=== PATIENT | female | born 1975 | race Caucasian/White ===

== ENCOUNTER 2025-02-28 22:30 | Observation (INO) | payer OTHER, SELFPAY ==
--- NOTE | ~2025-02-28 | XR_ITS ---
EXAMINATION: XR chest 2V DATE: 02/28/2025 22:54 INDICATION: Chest pain. Abdominal pain. TECHNIQUE: frontal and lateral views of the chest were obtained. COMPARISON: None FINDINGS: Lungs are clear with no full airspace opacities, pulmonary edema, pleural effusion or pneumothorax. H eart size is normal. Bilateral breast implants. 2.5 x 1.4 cm ovoid density projecting over the upper lumbar spine with differential including sclerotic bone lesion, large renal stone or gallstone. Moder ate thoracic spondylosis with couple age-indeterminate likely chronic lower thoracic compression frac tures. IMPRESSION: 1. No acute cardiopulmonary disease. 2. Ovoid density projecting over the upper lumbar spine which could represent and indeterminate large sclerotic bone lesion, a gallstone or large renal stone. Reviewed, dictated and finalized at location A. IMPRESSION: 1. No acute cardiopulmonary disease. 2. Ovoid density projecting over the upper lumbar spine which could represent a nd indeterminate large sclerotic bone lesion, a gallstone or large renal stone.
--- NOTE | ~2025-02-28 | XR_ITS ---
EXAMINATION: XR retrograde pyelo w/stent LT DATE: 03/01/2025 14:13 INDICATION: Left internal ureteral stent placement TECHNIQUE: Fluoroscopic images from a left internal ureteral stent placement are submitted for review . 54 seconds of fluoroscopy time. 5 fluoroscopic images. FINDINGS: There is a left double-J internal ureteral stent projecting in expected position, with proximal [place] loop at the level of the renal pelvis and distal loop in the pelvis within the bladder lumen. IMPRESSION: 1. Left internal ureteral stent placement. Please refer to real-time procedural findings for detail s. Reviewed, dictated and finalized at location B. IMPRESSION: 1. Left internal ureteral stent placement. Please refer to real-time procedur al findings for details.
--- NOTE | ~2025-02-28 | CT_ITS ---
Clinical Indication: Epigastric pain CT Scan of the Chest, Abdomen, and Pelvis with Contrast: Technique: Contiguous sections were acquired throughout the chest, abdomen, and pelvis after intraven ous administration of 100 cc of Omnipaque 350. Dose reduction technique was used on this scan by brian lombardo automated exposure control and iterative reconstruction technique. The dose-length product (DL P) was 999.41 mGy-cm. Findings: There is no evidence of any significant mediastinal, hilar or axillary lymphadenopathy. The mediastin al soft tissues appear normal. No large central pulmonary embolus. No aortic aneurysm or dissection. There is no evidence of pleural or pericardial effusion. The lungs are clear. No pulmonary nodules or infiltrates are noted. There is probable diffuse hepatic steatosis. There is a 1.8 cm round stone at the left renal pelvis w ith mild to moderate left hydronephrosis. There is mild hyperenhancement of the urothelium of the lef t renal collecting system, but no parenchymal changes of the left kidney are seen. The spleen, pancre as, gallbladder, adrenals and right kidney are within normal limits. No evidence of aortic aneurysm. No lymphadenopathy. No bowel obstruction or bowel wall thickening. There is no evidence to suggest acute appendicitis. Urinary bladder is unremarkable. No pelvic mass seen. No ascites. Impression: 1.8 cm round stones left renal pelvis with mild to moderate left hydronephrosis. Mild hyperenhancement of the urothelium in the left renal collecting system could reflect ascending u rinary tract infection. Correlate with urinalysis. No evidence of ron pyelonephritis. Reviewed, dictated and finalized at location . Impression: 1.8 cm round stones left renal pelvis with mild to moderate left hydronephrosis . Mild hyperenhancement of the urothelium in the left renal collecting system cou ld reflect ascending urinary tract infection. Correlate with urinalysis. No leilani dence of ron pyelonephritis.
--- NOTE | 2025-02-28 22:32 | ECG_ITS ---
Test Date: 2025-02-28 22:39:27 Measurements Intervals Amo Rate: 71 P: 53 [place]: 142 QRS: 13 QRSD: 90 T: 32 QT: 428 QTc: 466 Interpretive Statements SINUS RHYTHM NONSPECIFIC ST-T WAVE CHANGES No previous ECG available for comparison Electronically Signed On 03-01-2025 12:42:09 CDT by Polo Barlow M.D.
[2025-02-28 22:35] VITALS: BP 157/90; PULSE 78; RESP 26; TEMP 36.6
[2025-02-28] MEDS: ASPIRIN 81 MG CHEWABLE TABLET 324 MG PO (22:40)
[2025-02-28 22:50] LABS: Hematocrit 40.3 % (37.0-47.0); Hemoglobin 13.4 g/dL (12.0-15.0); Immature Granulocyte Percent A 0.3 % (0-0.5); Lymphocytes Absolute Auto 4.32 K/mm3 (0.9-3.2); Mean Corpuscular HGB Conc 33.3 g/dl (32-36); Mean Corpuscular Hemoglobin 29.3 pg (26-34); Mean Corpuscular Volume 88.2 fl (80-100); Nucleated Red Blood Cells Absolute Auto 0.000 K/mm3 (0.0-0.012); Nucleated Red Blood Cells Perc 0.0 % (0.0-0.2); Platelet Count Result 346 k/mm3 (150-375); Red Blood Count 4.57 M/mm3 (4.2-5.4); White Blood Count 12.0 K/mm3 (4.5-10.0)
[2025-02-28 23:02] LABS: INR 0.9; Prothrombin Time 12.5 Seconds (11.1-14.7)
[2025-02-28 23:03] LABS: Partial Thromboplastin Time 25.4 Seconds (22.3-36.8)
[2025-02-28 23:16] VITALS: BP 172/88; PULSE 85; RESP 22; O2SAT 100
--- NOTE | 2025-02-28 23:18 | PC.NURSE ---
Assumed care. report given by Vanita BOYLE.
[2025-02-28 23:20] LABS: Alanine Aminotransferase 19 U/L (6-35); Albumin Level 4.5 g/dL (3.5-5.1); Alkaline Phosphatase 46 U/L (38-126); Anion Gap 13 mmol/L (4-12); Aspartate Amino Transferase 28 U/L (14-36); Bilirubin,Total 0.5 mg/dL (0.2-1.3); Blood Urea Nitrogen 13 mg/dL (7-17); Calcium 10.3 mg/dL (8.4-10.2); Carbon Dioxide 24 mmol/L (22-30); Chloride 104 mmol/L (98-107); Estimated CRCL calculation 57 ml/min; Estimated Glomerular Filt Rate 59; Glucose 109 mg/dL (65-110); Lipase 127 U/L (23-300); Potassium 3.1 mmol/L (3.4-5.0); Sodium 141 mmol/L (137-145); Total Protein 8.4 g/dL (6.3-8.2)
[2025-02-28 23:28] LABS: Troponin I < 0.012 ng/mL (0.000-0.034)
--- NOTE | 2025-02-28 23:33 | ED.CHESTPAIN ---
HPI - Chest Pain General Chief Complaint: Chest Pain <MEGHNA Martinez Last Filed: 03/01/25 02:40> Stated Complaint: chest pain <Chiquita Streeter PA-C - Last Filed: 03/01/25 02:40> Time Seen by Provider: 02/28/25 22:45 <Chiquita Streeter PA-C - Last Filed: 03/01/25 02:40> History of Present Illness HPI narrative: 49-year-old female with reported history of hypertension, GERD, PUD, kidney stones presents to the emergency department for epigastric abdominal pain that started at 6:00 p.m.. Patient states she was sitting at dinner when she began having pain in her epigastrium and lower chest that radiates to her back. She reports a history of indigestion and states this feels similar, however usually does not last this long. She states 30 minutes after her pain started she ate potato soup which made the pain worse. She thought it was acid reflux she took omeprazole but did not have improvement. Patient reports associated nausea and vomiting as well as diarrhea and subjective fever and chills. Patient has a history of acid reflux and was also told that she had an ulcer on endoscopy several years ago. Denies urinary symptoms, melena or hematochezia, hematemesis or coffee-ground emesis. Denies numbness or tingling to extremities. Patient is endorsing a cough. <Chiquita Streeter PA-C - Last Filed: 03/01/25 02:40> Related Data Allergies/Adverse Reactions: Allergies Allergy/AdvReac Type Severity Reaction Status Date / Time acetaminophen (From Percocet) AdvReac Intermediate Hallucinati Verified 02/28/25 22:31 ng oxycodone AdvReac Intermediate Hallucinati Verified 02/28/25 22:31 ng <Chiquita Streeter PA-C - Last Filed: 03/01/25 02:40> Review of Systems Review of Systems: All systems reviewed & are unremarkable except as noted in HPI and below <MEGHNA Martinez Last Filed: 03/01/25 02:40> Exam Narrative: GENERAL: Uncomfortable appearing HEAD: Normocephalic, atraumatic. EYES: PERRLA and EOMI. ENT: Nares clear, no rhinorrhea or epistaxis. Mucous membranes moist. NECK: Supple. CHEST: Clear to auscultation. No respiratory distress. HEART: Regular rate and rhythm. No murmur heard. Normal peripheral pulses. ABDOMEN: Normoactive bowel sounds. Abdomen soft with tenderness in the epigastrium and right upper quadrant. No rebound or rigidity. No CVA tenderness EXTREMITIES: Normal range of motion. No edema. SKIN: Warm, dry, no rash. NEURO: No focal deficits. Alert and oriented x3 <Chiquita Streeter PA-C - Last Filed: 03/01/25 02:40> Course CRAPS MANAGER/PA Physician Supervision This visit was performed by both a physician and an APC. I performed all aspects of the MDM as documented. <Devan Graham MD - Last Filed: 03/01/25 05:32> Vital Signs Vital signs: Vital Signs Temperature 36.6 C 02/28/25 22:35 Pulse Rate 78 02/28/25 22:35 Respiratory Rate 26 H 02/28/25 22:35 Blood Pressure 157/90 H 02/28/25 22:35 Oxygen Delivery Room Air 02/28/25 22:35 Temperature 36.6 C 02/28/25 22:35 Pulse Rate 67 03/01/25 04:18 Respiratory Rate 19 03/01/25 04:18 Blood Pressure 156/101 H 03/01/25 04:18 Pulse Oximetry 100 03/01/25 04:18 Oxygen Delivery Room Air 02/28/25 23:50 <Chiquita Streeter PA-C - Last Filed: 03/01/25 02:40> Vital Signs Temperature 36.6 C 02/28/25 22:35 Pulse Rate 78 02/28/25 22:35 Respiratory Rate 26 H 02/28/25 22:35 Blood Pressure 157/90 H 02/28/25 22:35 Oxygen Delivery Room Air 02/28/25 22:35 Temperature 36.6 C 02/28/25 22:35 Pulse Rate 67 03/01/25 04:18 Respiratory Rate 19 03/01/25 04:18 Blood Pressure 156/101 H 03/01/25 04:18 Pulse Oximetry 100 03/01/25 04:18 Oxygen Delivery Room Air 02/28/25 23:50 <Devan Graham MD - Last Filed: 03/01/25 05:32> MDM - Chest Pain MDM Narrative Medical decision making narrative: 49-year-old female with a reported history of hypertension, GERD, PUD, kidney stones presents to the emergency department for epigastric abdominal pain that radiates to her back that started at 6:00 p.m.. Patient is uncomfortable appearing on exam. Vital signs with tachypnea of 26 and blood pressure 157/90, otherwise unremarkable. Exam is notable for the above. Patient is very uncomfortable appearing, will obtain CTA chest, abdomen and pelvis. EKG shows normal sinus rhythm with rate of 71 ppm, normal ID interval, normal QRS duration, normal QTC, no ischemic changes. Troponin is undetectable. Lab work with leukocytosis of 12. Chemistries with mild hypokalemia of 3.1 which is been orally repleted. Magnesium normal. Calcium mildly elevated at 10.3 due to dehydration. Fluids provided. Urinalysis indicative of urinary tract infection with 3+ leukocyte esterase, 21-50 year or blood cells, greater than 100 white blood cells. negative. CT a of the chest and pelvis shows no stenosis, dissection, aneurysm or occlusion of the abdominal aorta. There is left-sided hydroureteronephrosis secondary to 2 cm calculus within the left renal pelvis which is likely the source of patient's symptoms. There is diverticulosis without evidence of diverticulitis and hepatomegaly. Patient was updated on results. She rigidly received IV fluids, GI cocktail and Pepcid without improvement. She then received Dilaudid with improvement. Given large renal stone in conjunction with UTI, will consult Urology. Discussed with urologist, Dr. Cruz, who agrees to admission and starting Rocephin. Advises keep the patient NPO for likely stent placement tomorrow. Discussed with hospitalist, Dr. Morgan, who agrees to admission. <Chiquita Streeter PA-C - Last Filed: 03/01/25 02:40> Lab Data Result diagrams: 02/28/25 22:43 02/28/25 22:43 <Chiquita Streeter PA-C - Last Filed: 03/01/25 02:40> Labs: Lab Results 02/28/25 03/01/25 Range/Units 22:43 00:47 WBC 12.0 H (4.5-10.0) K/mm3 RBC 4.57 (4.2-5.4) M/mm3 Hgb 13.4 (12.0-15.0) g/dL Hct 40.3 (37.0-47.0) % MCV 88.2 (80-100) fl MCH 29.3 (26-34) pg MCHC 33.3 (32-36) g/dl RDW 13.2 (11.5-14.5) % Plt Count 346 (150-375) k/mm3 MPV 10.1 (7.4-10.4) fl Immature Gran % (Auto) 0.3 (0-0.5) % Neut % (Auto) 54.6 (45.5-73.1) % Lymph % (Auto) 36.0 (18.3-44.2) % [place] % (Auto) 6.7 (2.6-8.5) % Eos % (Auto) 1.8 (0-4.4) % Baso % (Auto) 0.6 (0.2-1.2) % Lymph # (Auto) 4.32 H (0.9-3.2) K/mm3 [place] # (Auto) 0.8 H (0.1-0.6) K/mm3 Eos # (Auto) 0.2 (0-0.3) K/mm3 Baso # (Auto) 0.1 (0.0-0.1) K/mm3 Abs Immat Gran (auto) 0.04 H (0.00-0.031) K/mm3 Absolute Neuts (auto) 6.6 (1.3-6.7) K/mm3 Absolute Nucleated RBC 0.000 (0.0-0.012) K/mm3 Nucleated RBC % 0.0 (0.0-0.2) % PT 12.5 (11.1-14.7) Seconds INR 0.9 APTT 25.4 (22.3-36.8) Seconds Sodium 141 (137-145) mmol/L Potassium 3.1 L (3.4-5.0) mmol/L Chloride 104 (98-107) mmol/L Carbon Dioxide 24 (22-30) mmol/L Anion Gap 13 H (4-12) mmol/L BUN 13 (7-17) mg/dL Creatinine 1.00 (0.7-1.0) mg/dL Estim Creat Clear Calc 57 ml/min Estimated GFR 59 (59 - ) Glucose 109 (65-110) mg/dL Calcium 10.3 H (8.4-10.2) mg/dL Magnesium 2.0 (1.6-2.3) mg/dL Total Bilirubin 0.5 (0.2-1.3) mg/dL AST 28 (14-36) U/L ALT 19 (6-35) U/L Alkaline Phosphatase 46 (38-126) U/L Troponin I < 0.012 (0.000-0.034) ng/mL Total Protein 8.4 H (6.3-8.2) g/dL Albumin 4.5 (3.5-5.1) g/dL Lipase 127 (23-300) U/L Urine Color Yellow (Yellow) Urine Appearance Cloudy H (Clear) Urine pH 7.5 (5.0-9.0) Ur Specific [place] 1.040 H (1.001-1.035) Urine Protein 2+ H (Negative) mg/dL Urine Glucose (UA) Negative (Negative) mg/dL Urine Ketones 2+ H (Negative) mg/dL Ur Blood (Man) 2+ H (Negative) Urine Nitrate Negative (Negative) Urine Bilirubin Negative (Negative) Urine Urobilinogen 1.0 (<2.0) mg/dL Leukocyte Esterase Rfl 3+ H (Negative) FANNIE/UL Urine RBC 21-50 H (0-2) /hpf Urine WBC >100 H (0-3) /hpf Ur Squamous Epith Cells Occasional (Few) /hpf Urine Bacteria Rare /hpf Urine Casts 3-5 Urine Test Negative <Chiquita Streeter PA-C - Last Filed: 03/01/25 02:40> Lab Results 02/28/25 03/01/25 Range/Units 22:43 00:47 WBC 12.0 H (4.5-10.0) K/mm3 RBC 4.57 (4.2-5.4) M/mm3 Hgb 13.4 (12.0-15.0) g/dL Hct 40.3 (37.0-47.0) % MCV 88.2 (80-100) fl MCH 29.3 (26-34) pg MCHC 33.3 (32-36) g/dl RDW 13.2 (11.5-14.5) % Plt Count 346 (150-375) k/mm3 MPV 10.1 (7.4-10.4) fl Immature Gran % (Auto) 0.3 (0-0.5) % Neut % (Auto) 54.6 (45.5-73.1) % Lymph % (Auto) 36.0 (18.3-44.2) % [place] % (Auto) 6.7 (2.6-8.5) % Eos % (Auto) 1.8 (0-4.4) % Baso % (Auto) 0.6 (0.2-1.2) % Lymph # (Auto) 4.32 H (0.9-3.2) K/mm3 [place] # (Auto) 0.8 H (0.1-0.6) K/mm3 Eos # (Auto) 0.2 (0-0.3) K/mm3 Baso # (Auto) 0.1 (0.0-0.1) K/mm3 Abs Immat Gran (auto) 0.04 H (0.00-0.031) K/mm3 Absolute Neuts (auto) 6.6 (1.3-6.7) K/mm3 Absolute Nucleated RBC 0.000 (0.0-0.012) K/mm3 Nucleated RBC % 0.0 (0.0-0.2) % PT 12.5 (11.1-14.7) Seconds INR 0.9 APTT 25.4 (22.3-36.8) Seconds Sodium 141 (137-145) mmol/L Potassium 3.1 L (3.4-5.0) mmol/L Chloride 104 (98-107) mmol/L Carbon Dioxide 24 (22-30) mmol/L Anion Gap 13 H (4-12) mmol/L BUN 13 (7-17) mg/dL Creatinine 1.00 (0.7-1.0) mg/dL Estim Creat Clear Calc 57 ml/min Estimated GFR 59 (59 - ) Glucose 109 (65-110) mg/dL Calcium 10.3 H (8.4-10.2) mg/dL Magnesium 2.0 (1.6-2.3) mg/dL Total Bilirubin 0.5 (0.2-1.3) mg/dL AST 28 (14-36) U/L ALT 19 (6-35) U/L Alkaline Phosphatase 46 (38-126) U/L Troponin I < 0.012 (0.000-0.034) ng/mL Total Protein 8.4 H (6.3-8.2) g/dL Albumin 4.5 (3.5-5.1) g/dL Lipase 127 (23-300) U/L Urine Color Yellow (Yellow) Urine Appearance Cloudy H (Clear) Urine pH 7.5 (5.0-9.0) Ur Specific [place] 1.040 H (1.001-1.035) Urine Protein 2+ H (Negative) mg/dL Urine Glucose (UA) Negative (Negative) mg/dL Urine Ketones 2+ H (Negative) mg/dL Ur Blood (Man) 2+ H (Negative) Urine Nitrate Negative (Negative) Urine Bilirubin Negative (Negative) Urine Urobilinogen 1.0 (<2.0) mg/dL Leukocyte Esterase Rfl 3+ H (Negative) FANNIE/UL Urine RBC 21-50 H (0-2) /hpf Urine WBC >100 H (0-3) /hpf Ur Squamous Epith Cells Occasional (Few) /hpf Urine Bacteria Rare /hpf Urine Casts 3-5 Urine Test Negative <Devan Graham MD - Last Filed: 03/01/25 05:32> Discharge Plan Discharge Clinical Impression: Calculus, renal UTI (urinary tract infection) Qualifiers: Urinary tract infection type: acute cystitis Hematuria presence: with hematuria Qualified Code(s): N30.01 - Acute cystitis with hematuria <Chiquita Streeter PA-C - Last Filed: 03/01/25 02:40> Patient Disposition: Still a Patient <Chiquita Streeter PA-C - Last Filed: 03/01/25 02:40> Condition: Stable <Chiquita Streeter PA-C - Last Filed: 03/01/25 02:40>
[2025-02-28 23:50] VITALS: O2SAT 100
[2025-03-01] VITALS (16 sets, daily range): BP systolic 104–188; BP diastolic 65–101; PULSE 60–82; RESP 12–24; TEMP 36.3–36.8; O2SAT 96–100
[2025-03-01] MEDS: BELLADONNA ALK/PHENOB ELIX 10 ML, MAG HYDROX/ALUMINUM HYD/SIMETH 30 ML, LIDOCAINE 2% VI... PO (00:30)
[2025-03-01] MEDS: ONDANSETRON INJ 4 MG/2 ML VIAL IV PUSH ×3 (00:31→10:00)
[2025-03-01] MEDS: FAMOTIDINE 20 MG/2 ML VIAL IV PUSH (00:31)
[2025-03-01] MEDS: SODIUM CHLORIDE 0.9% IV 1,000 ML 999 ML IV CONT (00:31)
--- OUTSIDE RECORDS SUMMARY | 2025-03-01 01:00 | XMS_ITS | Encounter Summary ---
Author Organization [facility] [address] [place] [address] Care Team Providers Care Civil Lawyer Name Role Phone Hilda Hsieh MD Primary Care Provider Hilda Hsieh MD Unavailable [phone] Tere Barba PLUMBING INSTRUCTOR-OBSTETRICIAN/GYNECOLOGIST Unavailable Encounter Details Date Type Department Care Team (Late st Contact Info) Description 09/22/2022 Telephone [facility] [id number], [address] [place] [address] Hilda Hsieh MD [address] [place] [address] Social History Tobacco Use Types Packs/Day Years Used Date Smoking Tobacco: Never Smokeless Tobacco: Never Alcohol Use Standard Drinks/Week Comments Yes 0 (1 standard drink = 0.6 oz pur e alcohol) PHQ-2 Answer Date Recorded PHQ2 TOTAL SCORE 0 06/20/2022 Comments No Sex and Gender Information Value Date Recorded Sex Assigned at Female 06/09/2022 8:26 AM CDT Legal Sex Female 12:34 PM CDT Gender Identity Female 06/09/2022 8:26 AM CDT Sexual Orientation Straight 06/09/2022 8: 26 AM CDT documented as of this encounter Plan of Treatment Upcoming Encounters Date Type Department Care Team (Late st Contact Info) Description 05/09/2025 8:00 AM CDT Office Visit [facility] - Family Medicine [address] [place] [phone] Tere Barba, PLUMBING INSTRUCTOR-OBSTETRICIAN/GYNECOLOGIST [address] [address] [place] [phone] documented as of this encounter Visit Diagnoses Not on filedocumented in this encounter Care Teams Civil Lawyer Relationship Specialty Start Date End Date Hilda Hsieh MD [address] [facility] [address] [place] [phone] PCP - General Family Medicine 06/07/20 Hilda Hsieh MD [address] [facility] [address] [place] [phone] PCP - Attributed-[employer] 02/14/22 Tere Barba, PLUMBING INSTRUCTOR-OBSTETRICIAN/GYNECOLOGIST [address] [facility] [facility] [facility] [address] [place] [phone] PCP - Attributed-[employer] 11/15/24 documented as of this encounter
--- OUTSIDE RECORDS SUMMARY | 2025-03-01 01:00 | XMS_ITS | Clinical Summary ---
Author Organization [facility] [employer] Address [address] [place] [address] Care Team Providers Care Motorcyles Final Inspector Name Role Phone Hilda Hsieh MD Primary Care Provider [phone] Tere Barba PRODUCT DESIGN MANAGER-CLASSIFIED AD TAKER Unavailable [phone] Source Comments [facility],non-owned Affiliates and Associated Physician Practices is amultiple site organization consisting of ambulatory clinics and hospital sitesin [place], [place], [place] and [place]. This disclosure is being madepursuant to the Care Everywhere program and may not contain all information available regarding this patient. Last updated 18.[facility] Allergies Active Allergy Reactions Criticality Noted Date Comments Oxycodone-Acetaminophen Psychiatric Medium 06/05/2009 Medications * Be aware that medications may not be up to date on this document. Alwaysverify current medications with the patient. cetirizine (ZYRTEC ALLERGY) 10 MG gel capsule Take 1 (one) capsule by mouth once daily as needed Active fluticasone propionate (Flonase) 50 MCG/ACT nasal spray [place] 2 (two) sprays into each nostril once daily 48 g 4 2 Active traZODone (Desyrel) 50 MG tablet Take 2 (two) tablets by mouth at bedtime 180 tablet 3 4 Active escitalopram (Lexapro) 10 MG tablet Take 1 (one) tablet by mouth once daily 90 tablet 3 4 Active Nortrel 0.5/35, 28, 0.5-35 MG-MCG tablet Take 1 (one) tablet by mouth once daily 30 tablet 5 5 Active lisinopril (Prinivil; Zestril) 20 MG tablet Take 1 (one) tablet by mouth once daily 90 tablet 3 5 Active phentermine (Adipex-P) 37.5 MG tablet Take 1 (one) tablet by mouth once daily 30 tablet 2 5 Active Additional Information Patient not taking.Reported on 12/20/2024 hydroCHLOROthia zide (Hydrodiuril) 25 MG tablet Take 0.5 (one-half) tablet by mouth once daily 45 tablet 4 5 Active Active Problems Problem Noted Date Diagnosed Date Gastroesophageal reflux disease without esophagi tis 06/13/2020 Primary insomnia 06/13/2020 Anxiety with depression 06/13/2020 Essential hypertension 06/13/2020 Seasonal allergies 06/13/2020 Encounters Date Type Department Care Team Description 12/20/2024 1:40 PM CDT Office Visit [address] [phone] Hilda Hsieh MD Essential hypertension (Primary Dx); Anxiety with depression; Gastroesophageal reflux disease without esophagitis; Primary insomnia; Seasonal allergies; Atypical chest pain 12/20/2024 Travel 12/15/[address] [phone] Hilda Hsieh MD Blood Pressure from Last 3 Months Immunizations Immunization Administration Dates Next Due TDAP (7yrs+) 08/11/2008 TDAP, HISTORIC VACCINE 04/12/2020 Td (Adult), 2 Lf Tetanus Toxoid, Adsorbed, Pf Family History Medical History Relation Name Comments Hypertension Father Relation Name Status Comments Brother Alive Father Alive Mother Alive Social History Tobacco Use Types Packs/Day Years Used Date Smoking Tobacco: Never Passive Smoke Exposure: Never Smokeless Tobacco: Never Tobacco Cessation:Counseling Given: Not Answered Alcohol Use Standard Drinks/Week Comments Yes 2 (1 standard drink = 0.6 oz pur e alcohol) PHQ-2 Answer Date Recorded Patient Health Questionnaire-2 Score 0 12/20/2024 Comments No Sex and Gender Information Value Date Recorded Sex Assigned at Female 06/09/2022 8:26 AM CDT Legal Sex Female 12:34 PM CDT Gender Identity Female 06/09/2022 8:26 AM CDT Sexual Orientation Straight 06/09/2022 8: 26 AM CDT Last Filed Vital Signs Vital Sign Reading Time Taken Comments Blood Pressure 110/70 12/20/2024 1:53 PM CDT Pulse 99 12/20/2024 1:53 PM CDT Temperature 36.7 C (98.1 F) 04/13/2023 10:49 AM CDT Respiratory Rate 8 01/01/2023 12:56 PM CDT Oxygen Saturation 98% 12/20/2024 1:53 PM CDT Inhaled Oxygen Concentration - - Weight 70.3 kg (155 lb) 12/20/2024 1:53 PM CDT Height 157.5 cm (5' 2) 12/20/2024 1:53 PM CDT Body Mass Index 28.35 12/20/2024 1:53 PM CDT Plan of Treatment Upcoming Encounters Date Type Department Care Team (Late st Contact Info) Description 05/09/2025 8:00 AM CDT Office Visit [facility] - Family Medicine [address] [place] [phone] Tere Barba, PRODUCT DESIGN MANAGER-CLASSIFIED AD TAKER [address] [facility] [address] [place] [phone] Health Maintenance Due Date Last Done Comments COLOGUARD (AGES 45-75) - COLON CA SCREENING 1975 CT COLONOGRAPHY - COLON CA SCREENING 1975 FIT - COLON CA SCREENING 1975 FLEX SIG - COLON CA SCREENING 1975 MAMMOGRAM 06/24/2024 06/24/2022, 1103/2022, 11/06/2020 PAP SMEAR 03/22/2025 07/01/2021 (Done Outside Per Patient) Postponed from 07/01/2024 (Patient Directed) COVID-19 VACCINE ( season) 2025 Postponed from 04/17/2024 (Patient Directed) SCREENING FOR DIABETES 04/27/2027 , 04/28/2023, 04/25/2022, Additional history exists INFLUENZA VACCINE (#1) 2027 Postp oned from 04/17/2025 (Patient Directed) ZOSTER VACCINE (1 of 2) 2027 COLONOSCOPY - COLON CA SCREENING 01/02/2028 01/01/2023, 01/01/2023, 01/01/2023 Colorectal Cancer Screening 01/02/2028 LIPID TESTING 04/27/2029 04/27/2024, 04/17, 04/25/2022 DTAP/TDAP/TD VACCINES (3 - Td or Tdap) 04/12/2030 04/12/2020, 08/11/2008, 08/12/2005 COLON MONITORING 01/01/2033 01/01/2023, , 01/01/2023, Additional history exists HEPATITIS C SCREENING Completed 04/25/2022 DEPRESSION SCREENING Completed 08/24/2024, 12/08/2023, 07/14/2023, Additional history exists HEPATITIS B VACCINE Discontinued HIB VACCINE Aged Out No longer eligi ble based on patient's age to complete this topic HIV SCREENING Discontinued HPV VACCINE Aged Out No longer eligi ble based on patient's age to complete this topic MENINGOCOCCAL (Group B) VACCINE SHARED DECISION-MAKING Aged Out No longer eligible based on patient's age to complete this topic MENINGOCOCCAL GROUPS A/C/Y/W VACCINE Aged Out No longer eligible based on patient's age to complete this topic PNEUMOCOCCAL VACCINE Aged Out No long er eligible based on patient's age to complete this topic Procedures Procedure Name Priority Date/Time Associated Diagnosis Comments COMPREHENSIVE METABOLIC PANEL Routine 04/27/2024 8:45 AM CDT Preventative health care LIPID PROFILE Routine 04/27/2024 8:45 AM CDT Preventative health care ENDOSCOPY, COLON, SCREENING Routine 01/01/2023 12:08 PM CDT HEPATITIS C ANTIBODY Routine 04/25/2022 8:49 AM CDT Encounter for hepatitis C screening test for low risk patient MAMMOGRAPHY ORDER Routine 11/06/2020 from Last 3 Months or Most Recently Relevant to Health Maintenance Results * COMPREHENSIVE METABOLIC PANEL (04/27/2024 8:45 AM CDT) Glucose 87 70 - 99 mg/dL [facility] INSURANCE BILL BUN 12 6 - 24 mg/dL [facility] INSURANCE BILL Creatinine 0.90 0.57 - 1.00 mg/dL [facility] INSURANCE BILL eGFR by CKD-EPI 80 >59 mL/min/1.7 3 [facility] INSURANCE BILL BUN/Creatinine Ratio 13 9 - 23 [facility] INSURANCE BILL Sodium 137 134 - 144 mmol/L [facility] INSURANCE BILL Potassium 4.1 3.5 - 5.2 mmol/L [facility] INSURANCE BILL Chloride 100 96 - 106 mmol/L [facility] INSURANCE BILL CO2 22 20 - 29 mmol/L [facility] INSURANCE BILL Calcium 9.7 8.7 - 10.2 mg/dL [facility] INSURANCE BILL Protein Total 7.2 6.0 - 8.5 g/dL [facility] INSURANCE BILL Albumin 4.4 3.9 - 4.9 g/dL [facility] INSURANCE BILL Globulin Total 2.8 1.5 - 4.5 g/dL [facility] INSURANCE BILL Bilirubin Total 0.2 0.0 - 1.2 mg/dL [facility] INSURANCE BILL Alkaline Phosphatase 48 44 - 121 IU/L [facility] INSURANCE BILL AST 9 0 - 40 IU/L [facility] INSURANCE BILL ALT 12 0 - 32 IU/L [facility] INSURANCE BILL Blood BLOOD SPECIMEN / Unknown 04/27/2024 8:45 AM CDT 04/27/2024 Narrative [facility] INSURANCE BILL - 04/28/2024 7:11 AM CDT Performed at: 01 - [address] [id number] Art Dealer: Janes Tapia PhD, Phone: [phone] us Hilda Hsieh MD LAB - CHEMISTRY ORDERABLES Fin al Result [facility] INSURANCE BILL [address] [place] [address] * (ABNORMAL) LIPID PROFILE (04/27/2024 8:45 AM CDT) Cholesterol 266(H) 100 - 199 mg/dL [facility] INSURANCE BILL Triglycerides 185(H) 0 - 149 mg/dL [facility] INSURANCE BILL HDL Cholesterol 69 >39 mg/dL [facility] INSURANCE BILL VLDL Calculated 33 5 - 40 mg/dL [facility] INSURANCE BILL LDL Calculated 164(H) 0 - 99 mg/dL [facility] INSURANCE BILL Blood BLOOD SPECIMEN / Unknown 04/27/2024 8:45 AM CDT 04/27/2024 Narrative [facility] INSURANCE BILL - 04/28/2024 7:11 AM CDT Performed at: - [address] [id number] Art Dealer: Janes Tapia PhD, Phone: [phone] us Hilda Hsieh MD LAB - CHEMISTRY ORDERABLES Fin al Result Performing Organization Address City/State/[facility] Co de Phone Number [facility] INSURANCE BILL [address] [place] [address] * ENDOSCOPY, COLON, SCREENING (01/01/2023 12:08 PM CDT) Report Endoscopy POC _ Patient Name: Sahra Mckeon Procedure Date: 01/01/2023 12:08 PM Date of : 1975 Admit Type: Outpatient Age: 47 Room: ROOM 1 Gender: Female Attending MD: Ankit Stanford MD, [id number] _ Procedure: Colonoscopy Indications: Screening for colorectal malignant neoplasm, Last colonoscopy: date unknown (unable to locate last colonoscopy report) Providers: Ankit Stanford MD, Rosamaria Reid, OMNTANA, Tabitha Ravi, [place], Jennifer Stanton CRNA (Anesthesia Staff) Medicines: Propofol per Anesthesia Complications: No immediate complications. _ Estimated Blood Loss: Estimated blood loss: none. Procedure: Pre-Anesthesia Assessment: - Prior to the procedure, a History and Physical was performed, and patient medications and allergies were reviewed. The patient's tolerance of previous anesthesia was also reviewed. The risks and benefits of the procedure and the sedation options and risks were discussed with the patient. All questions were answered, and informed consent was obtained. Prior Anticoagulants: The patient has taken no anticoagulant or antiplatelet agents. ASA Grade Assessment: II - A patient with mild systemic disease. After reviewing the risks and benefits, the patient was deemed in satisfactory condition to undergo the procedure. After I obtained informed consent, the scope was passed under direct vision. Throughout the procedure, the patient's blood pressure, pulse, and oxygen saturations were monitored continuously. The [id number] SN [id number] was introduced through the anus and advanced to the cecum, identified by appendiceal orifice and ileocecal valve. The appendiceal orifice and the rectum were photographed. The quality of the bowel preparation was adequate. Findings: A 3 mm polyp was found in the proximal sigmoid colon. The polyp was sessile. The polyp was removed with a cold biopsy forceps. Resection and retrieval were complete. Diverticula were found in the sigmoid colon and descending colon. Hemorrhoids were found. The hemorrhoids were small. The exam was otherwise without abnormality. _ Impression: - One 3 mm polyp in the proximal sigmoid colon, removed with a cold biopsy forceps. Resected and retrieved. - Diverticulosis in the sigmoid colon and in the descending colon. - Hemorrhoids. - The examination was otherwise normal. Recommendation: - High fiber diet. - Continue present medications. - If the pathology report reveals adenomatous tissue, then repeat the colonoscopy for surveillance in 5 years. - No aspirin, ibuprofen, naproxen, or other non-steroidal anti-inflammatory drugs for 3 days after polyp removal. - Patient has a contact number available for emergencies. The signs and symptoms of potential delayed complications were discussed with the patient. Return to normal activities tomorrow. Written discharge instructions were provided to the patient. Procedure Code(s): --- Professional --- 70801, Colonoscopy, flexible; with biopsy, single or multiple --- Technical --- 49387, Colonoscopy, flexible; with biopsy, single or multiple Diagnosis Code(s): --- Professional --- Z12.11, Encounter for screening for malignant neoplasm of colon D12.5, Benign neoplasm of sigmoid colon K64.9, Unspecified hemorrhoids K57.30, Diverticulosis of large intestine without perforation or abscess without bleeding --- Technical --- Z12.11, Encounter for screening for malignant neoplasm of colon D12.5, Benign neoplasm of sigmoid colon K64.9, Unspecified hemorrhoids K57.30, Diverticulosis of large intestine without perforation or abscess without bleeding CPT copyright 2020 [employer]. All rights reserved. The codes documented in this report are preliminary and upon body builder review may be revised to meet current compliance requirements. ___ Ankit Stanford MD 01/01/2023 12:29:04 PM This report has been signed electronically. Number of Addenda: 0 Note Initiated On: 01/01/2023 12:08 PM [facility] ENDOSCOPY 01/01/2023 12:0 8 PM CDT us Ankit Stanford MD GI PROCEDURE ORDERABLES Edit ed Result - Final [facility] ENDOSCOPY * HEPATITIS C ANTIBODY (04/25/2022 8:49 AM CDT) Hepatitis C Antibody Non Reactive Non Reactive [facility] ACCOUNT BILL Comment: Non Reactive - Antibodies to Hepatitis C virus (HCV) were no t detected, result does not exclude early acute HCV infection. FASTING Blood BLOOD SPECIMEN / Unknown 04/25/2022 8:49 AM CDT 04/25/2022 Narrative Resulting Agency Comment Lab Testing performed at: [facility] [address] [facility] [id number] us Hilda Hsieh MD LAB - CHEMISTRY ORDERABLES Fin al Result [facility] ACCOUNT BILL [address] [place] [address] * MAMMOGRAPHY ORDER (11/06/2020) Anatomical Region Laterality Modality Mammography us Provider Unknown MAMMO ORDERABLES Final Result from Last 3 Months or Most Recently Relevant to Health Maintenance Insurance [employer] Care Teams Motorcyles Final Inspector Relationship Specialty Start Date End Date Hilda Hsieh MD [address] [place] [address] PCP - General Family Medicine 10/22/20 Tere Barba, PRODUCT DESIGN MANAGER-CLASSIFIED AD TAKER [address] [facility] [address] [place] [phone] PCP - Attributed-[employer] 11/15/24
[2025-03-01 01:12] LABS: Add Urine Microscopic? YES; Appearance Urine Cloudy (Clear); Glucose Urine UA Negative (Negative); Leukocyte Esterase Ur 3+ LEU/UL (Negative); Nitrate Urine Negative (Negative); Specific Grav Ur 1.040 (1.001-1.035)
[2025-03-01 01:24] LABS: Magnesium 2.0 mg/dL (1.6-2.3)
--- NOTE | 2025-03-01 01:31 | ECG_ITS ---
Test Date: 2025-03-01 01:30:02 Measurements Intervals [place] Rate: 73 P: 43 ID: [id number] QRS: 15 QRSD: 78 T: 24 QT: 409 QTc: 453 Interpretive Statements SINUS RHYTHM LOW QRS VOLTAGE IN PRECORDIAL LEADS [QRS DEFLECTION < 1.0 mV IN CHEST LEADS] POSSIBLE ANTERIOR MYOCARDIAL INFARCTION , PROBABLY OLD [30 ms Q WAVE IN V3/V4, OR R < 0.2 mV IN V4] Compared to ECG 02/28/2025 22:39:27 Low QRS voltage now present Myocardial infarct finding now present ST (T wave) deviation no longer present Electronically Signed On 03-01-2025 12:46:00 CDT by Polo Barlow M.D.
[2025-03-01] MEDS: POTASSIUM CHLORIDE 20 MEQ PACKET (FOR LIQUID) 40 MEQ PO (01:40)
[2025-03-01] MEDS: HYDROmorphone HCL INJ (*CRX) 2 MG/ML VIAL 0.5 MG IV PUSH ×4 (01:48→19:33)
[2025-03-01 02:03] LABS: Pregnancy On Board Control Positive
--- NOTE | 2025-03-01 04:00 | PC.NURSE ---
Blood cultures sent.
[2025-03-01] MEDS: cefTRIAXone 1 GM in SODIUM CHLORIDE 0.9% IV 50 ML 100 ML IVPB (04:07)
[2025-03-01] MEDS: SODIUM CHLORIDE 0.9% IV 1,000 ML 125 ML IV CONT ×2 (04:17→17:20)
--- NOTE | 2025-03-01 08:53 | ADMGEN ---
This patient, Sahra Mckeon, was admitted to [facility] Surg Room 330-01. Patient/family oriented to hospital policies and general routines including ID bracelet, bed and alarms, visiting hours, pain management, procedures, bathroom and other care routines, personal items, smoking policy, room service/diet, and visiting hours. Information on how to activate the Rapid Response Team has been discussed. Patient/Family are encouraged to report perceived risks to care and to ask questions if they do not understand what they are told or what they should do.
--- NOTE | 2025-03-01 09:23 | P.CONUR_ITS ---
Assessment and Plan Assessment and plan (1) Calculus, renal: Code(s): N20.0 - Calculus of kidney Status: Acute (2) UTI (urinary tract infection): Qualifiers: Hematuria presence: with hematuria Urinary tract infection type: acute cystitis Qualified Code(s): N30.01 - Acute cystitis with hematuria Code(s): N39.0 - Urinary tract infection, site not specified Status: Acute Plan -CT AP reveals 2cm round stone left renal pelvis with mild to moderate left hydronephrosis. Mild hyperenhancement of the urothelium in the left renal collecting system could reflect ascending urinary tract infection. Correlate with urinalysis -wbc 12 and cr is 1.00 -UA concerning for infection. Urine culture pending. Culture driven antibiotic therapy per primary service. -Discussed cystoscopy with left ureteral stent placement including risks and plan for outpatient definitive stone management after resolution of infection. Patient agreeable to urologic surgical intervention today. -Keep NPO -add on for cystoscopy with left ureteral stent placement with Dr. Wilkins today. Urology Consult Note HPI Date Seen: 03/01/25 Requesting Physician: Beata Morgan MD Primary Care Provider: PHYSICIAN NOT ON STAFF Consult Narrative Narrative: Sahra Mckeon is a 49 year old female with reported history of hypertension, GERD, PUD, kidney stones presents to the emergency department for epigastric abdominal pain that started at 6:00 p.m.. Patient states she was sitting at dinner when she began having pain in her epigastrium and lower chest that radiates to her back. She reports a history of indigestion and states this feels similar, however usually does not last this long. She states 30 minutes after her pain started she ate potato soup which made the pain worse. She thought it was acid reflux she took omeprazole but did not have improvement. Patient reports associated nausea and vomiting as well as diarrhea and subjective fever and chills. Patient has a history of acid reflux and was also told that she had an ulcer on endoscopy several years ago. Denies urinary symptoms, melena or hematochezia, hematemesis or coffee-ground emesis. Denies numbness or tingling to extremities. Patient is endorsing a cough Review of Systems 2 Review of Systems: All systems reviewed & are unremarkable except as noted in HPI and below [facility] Social History Social History Smoking status: Never smoker Alcohol intake: current Drinks per week: 2 Substance use: never Substance use type: does not use Do You Feel Safe in your Home?: Yes Lack of Transportation: No Lack of Food: Never True Current Housing: I Have Housing Concerned About Future Housing: No Difficulty Paying Gas/Electric Bills: No Difficulty Paying for Meds: No Currently Unemployed: No Education: Bachelor's Degree Difficulty w/ Childcare or Family Care: No Spiritual care concerns: No Meds Home Medications and Allergies Home Medications ?Medication ?Instructions ?Recorded ?Confirmed ?Type escitalopram oxalate 10 mg tablet 10 mg PO DAILY@0800 03/01/25 03/01/25 History hydrochlorothiazide 25 mg tablet 12.5 mg PO QAM 03/01/25 03/01/25 History lisinopril 20 mg tablet 20 mg PO QAM 03/01/25 03/01/25 History norethindrone 0.5 mg-ethinyl 1 tablet PO QAM 03/01/25 03/01/25 History estradiol 35 mcg tablet (Nortrel) trazodone 50 mg tablet 50 mg PO HS 03/01/25 03/01/25 History Allergies Allergy/AdvReac Type Severity Reaction Status Date / Time acetaminophen (From Percocet) AdvReac Intermediate Hallucinati Verified 03/01/25 08:55 ng oxycodone AdvReac Intermediate Hallucinati Verified 03/01/25 08:55 ng Vital Signs Vital Signs - 24 hr 02/28/25 22:35 02/28/25 23:16 02/28/25 23:50 Temperature 97.8 F Pulse Rate 78 85 Respiratory Rate 26 H 22 H Blood Pressure 157/90 H 172/88 H Pulse Oximetry 100 100 Oxygen Delivery Room Air Room Air 03/01/25 00:00 03/01/25 00:31 03/01/25 02:45 Temperature Pulse Rate 71 82 80 Respiratory Rate 17 19 Blood Pressure 156/83 H Pulse Oximetry 100 100 Oxygen Delivery 03/01/25 04:18 03/01/25 05:01 03/01/25 07:13 Temperature Pulse Rate 67 78 70 Respiratory Rate 19 12 18 Blood Pressure 156/101 H 174/95 H 188/94 H Pulse Oximetry 100 96 98 Oxygen Delivery Results Labs 02/28/25 22:43 02/28/25 22:43 Labs: Short CBC 02/28/25 Range/Units 22:43 WBC 12.0 H (4.5-10.0) K/mm3 Hgb 13.4 (12.0-15.0) g/dL Hct 40.3 (37.0-47.0) % Plt Count 346 (150-375) k/mm3 BMP 02/28/25 22:43 Sodium 141 Potassium 3.1 L Chloride 104 Carbon Dioxide 24 BUN 13 Creatinine 1.00 Glucose 109 Calcium 10.3 H Cardiac Enzymes 02/28/25 Range/Units 22:43 Troponin I < 0.012 (0.000-0.034) ng/mL Liver Function 02/28/25 Range/Units 22:43 Total Bilirubin 0.5 (0.2-1.3) mg/dL AST 28 (14-36) U/L ALT 19 (6-35) U/L Alkaline Phosphatase 46 (38-126) U/L Albumin 4.5 (3.5-5.1) g/dL Urine 03/01/25 Range/Units 00:47 Urine Color Yellow (Yellow) Urine Appearance Cloudy H (Clear) Urine pH 7.5 (5.0-9.0) Ur Specific [place] 1.040 H (1.001-1.035) Urine Protein 2+ H (Negative) mg/dL Urine Glucose (UA) Negative (Negative) mg/dL
--- NOTE | 2025-03-01 12:50 | WPDHPUPDATE1 ---
History and Physical Update Update Date/Time: 03/01/25 12:50 History and Physical has been reviewed, including an updated exam of the patient. There are NO changes in the patient's condition. Risks, benefits, and alternatives have been discussed and questions answered. Patient agrees to proceed with procedure.
--- NOTE | 2025-03-01 13:19 | P.PNAN_ITS ---
Anes - Initial Pre Proc Eval Procedure: Operation Date: 03/01/25 13:30 Proposed Procedures p Cystoscopy, Left Stent Placement - Miquel Wilkins MD Date/Time: 03/01/25 13:19 Surgeon: Beata Morgan MD Pre Op Diagnosis: Renal calculus Patient Data Age: 49 Gender: F Height: 1.57 m Weight: 71 kg Last Vital Signs Temp 98.2 F 03/01/25 12:38 Pulse 68 03/01/25 12:38 Resp 20 03/01/25 12:38 BP 164/85 H 03/01/25 12:38 Pulse Ox 97 03/01/25 12:38 O2 Del Method Room Air 03/01/25 12:38 Allergies Allergy/AdvReac Type Severity Reaction Status Date / Time acetaminophen (From Percocet) AdvReac Intermediate Hallucinati Verified 03/01/25 08:55 ng oxycodone AdvReac Intermediate Hallucinati Verified 03/01/25 08:55 ng Home Medications ?Medication ?Instructions ?Recorded ?Confirmed ?Type escitalopram oxalate 10 mg tablet 10 mg PO DAILY@0800 03/01/25 03/01/25 History hydrochlorothiazide 25 mg tablet 12.5 mg PO QAM 03/01/25 03/01/25 History lisinopril 20 mg tablet 20 mg PO QAM 03/01/25 03/01/25 History norethindrone 0.5 mg-ethinyl 1 tablet PO QAM 03/01/25 03/01/25 History estradiol 35 mcg tablet (Nortrel) trazodone 50 mg tablet 50 mg PO 03/01/25 03/01/25 History Laboratory Tests 02/28/25 03/01/25 03/01/25 22:43 00:47 03:12 WBC 12.0 H K/mm3 (4.5-10.0) RBC 4.57 M/mm3 (4.2-5.4) Hgb 13.4 g/dL (12.0-15.0) Hct 40.3 % (37.0-47.0) MCV 88.2 fl (80-100) MCH 29.3 pg (26-34) MCHC 33.3 g/dl (32-36) RDW 13.2 % (11.5-14.5) Plt Count 346 k/mm3 (150-375) MPV 10.1 fl (7.4-10.4) Immature Gran % (Auto) 0.3 % (0-0.5) Neut % (Auto) 54.6 % (45.5-73.1) Lymph % (Auto) 36.0 % (18.3-44.2) [place] % (Auto) 6.7 % (2.6-8.5) Eos % (Auto) 1.8 % (0-4.4) Baso % (Auto) 0.6 % (0.2-1.2) Lymph # (Auto) 4.32 H K/mm3 (0.9-3.2) [place] # (Auto) 0.8 H K/mm3 (0.1-0.6) Eos # (Auto) 0.2 K/mm3 (0-0.3) Baso # (Auto) 0.1 K/mm3 (0.0-0.1) Abs Immat Gran (auto) 0.04 H K/mm3 (0.00-0.031) Absolute Neuts (auto) 6.6 K/mm3 (1.3-6.7) Absolute Nucleated RBC 0.000 K/mm3 (0.0-0.012) Nucleated RBC % 0.0 % (0.0-0.2) PT 12.5 Seconds (11.1-14.7) INR 0.9 APTT 25.4 Seconds (22.3-36.8) Sodium 141 mmol/L (137-145) Potassium 3.1 L mmol/L (3.4-5.0) Chloride 104 mmol/L (98-107) Carbon Dioxide 24 mmol/L (22-30) Anion Gap 13 H mmol/L (4-12) BUN 13 mg/dL (7-17) Creatinine 1.00 mg/dL (0.7-1.0) Estim Creat Clear Calc 57 ml/min Estimated GFR 59 (59 - ) Glucose 109 mg/dL (65-110) Lactic Acid 2.6 H mmol/L (0.7-2.0) Calcium 10.3 H mg/dL (8.4-10.2) Magnesium 2.0 mg/dL (1.6-2.3) Total Bilirubin 0.5 mg/dL (0.2-1.3) AST 28 U/L (14-36) ALT 19 U/L (6-35) Alkaline Phosphatase 46 U/L (38-126) Troponin I < 0.012 ng/mL (0.000-0.034) Total Protein 8.4 H g/dL (6.3-8.2) Albumin 4.5 g/dL (3.5-5.1) Lipase 127 U/L (23-300) Urine Color Yellow (Yellow) Urine Appearance Cloudy H (Clear) Urine pH 7.5 (5.0-9.0) Ur Specific [place] 1.040 H (1.001-1.035) Urine Protein 2+ H mg/dL (Negative) Urine Glucose (UA) Negative mg/dL (Negative) Urine Ketones 2+ H mg/dL (Negative) Ur Blood (Man) 2+ H (Negative) Urine Nitrate Negative (Negative) Urine Bilirubin Negative (Negative) Urine Urobilinogen 1.0 mg/dL (<2.0) Leukocyte Esterase Rfl 3+ H FANNIE/UL (Negative) Urine RBC 21-50 H /hpf (0-2) Urine WBC >100 H /hpf (0-3) Ur Squamous Epith Cells Occasional /hpf (Few) Urine Bacteria Rare /hpf Urine Casts 3-5 Urine Test Negative 03/01/25 06:27 WBC RBC Hgb Hct MCV MCH MCHC RDW Plt Count MPV Immature Gran % (Auto) Neut % (Auto) Lymph % (Auto) [place] % (Auto) Eos % (Auto) Baso % (Auto) Lymph # (Auto) [place] # (Auto) Eos # (Auto) Baso # (Auto) Abs Immat Gran (auto) Absolute Neuts (auto) Absolute Nucleated RBC Nucleated RBC % PT INR APTT Sodium Potassium Chloride Carbon Dioxide Anion Gap BUN Creatinine Estim Creat Clear Calc Estimated GFR Glucose Lactic Acid 1.8 mmol/L (0.7-2.0) Calcium Magnesium Total Bilirubin AST ALT Alkaline Phosphatase Troponin I Total Protein Albumin Lipase Urine Color Urine Appearance Urine pH Ur Specific [place] Urine Protein Urine Glucose (UA) Urine Ketones Ur Blood (Man) Urine Nitrate Urine Bilirubin Urine Urobilinogen Leukocyte Esterase Rfl Urine RBC Urine WBC Ur Squamous Epith Cells Urine Bacteria Urine Casts Urine Test Patient hx anesthesia problems: none Family hx anesthesia problems: none Results Review: All pre-operative results and documents have been reviewed as part of the pre- operative evaluation. PMFSH Social History Social History Smoking status: Never smoker Alcohol intake: current Drinks per week: 2 Substance use: never Substance use type: does not use Do You Feel Safe in your Home?: Yes Lack of Transportation: No Lack of Food: Never True Current Housing: I Have Housing Concerned About Future Housing: No Difficulty Paying Gas/Electric Bills: No Difficulty Paying for Meds: No Currently Unemployed: No Education: Bachelor's Degree Difficulty w/ Childcare or Family Care: No Spiritual care concerns: No Anes - Eval Final PreProcedure Day of Procedure 03/01/25 13:19 Patient weight: normal Heart: regular rate and rhythm Lungs: clear to auscultation Airway: Mallampati scale class II Neurological: alert and oriented Last oral intake: >/= 8 hours ASA classification: II Emergent: no Anesthetic plan: proceed Anesthesia type and monitoring: general LMA and standard monitoring Results Review: All pre-operative results and documents have been reviewed as part of the pre- operative evaluation. Informed Consent: The patient's anesthetic plan and its attendant risks and benefits were discussed with the patient/family/POA. Questions were solicited and answers provided to the satisfaction of the patient/family/POA.
[2025-03-01] MEDS: LIDOCAINE 2% GEL UROJET 10 ML PKG MUCOUS MEM (14:04)
--- NOTE | 2025-03-01 14:09 | W.PM.PROC2 ---
Procedure Note - Detailed Date of Procedure 03/01/25 Pre-op Diagnosis Left Renal calculus Post-op Diagnosis Same Procedure Performed Cystoscopy, left retrograde pyelogram, left ureteral stent insertion Surgeon Miquel Wilkins MD Anesthesia General Findings Large left renal stone, approximately 25mm Left hydronephrosis Description of Procedure Informed consents obtained. Patient taken the operating room. She was given preoperative IV antibiotics on the floor. She was induced anesthesia. She was prepped and draped normal sterile fashion. A 20 F cystoscope was inserted through the urethra into the bladder. Inspection of bladder there no mucosal abnormalities. We cannulated the left ureteral orifice and a delicate ureter and her stone present in the renal pelvis causing left hydronephrosis especially in the upper pole collecting system. Over the wire we advanced a 4.8 F stent into the upper pole. A curl in the upper pole and a curl bladder was performed. Bladder was emptied. Lidocaine instilled. Patient was awakened taken to PACU stable condition Plan outpatient stone management. Likely PCNL given large stone size Complications No immediate complications Condition Stable Disposition PACU
[2025-03-01] MEDS: LACTATED RINGERS 1,000 ML 30 ML IV CONT ×2 (14:15)
--- NOTE | 2025-03-01 16:49 | PM.IMHP ---
H&P: HPI History of Present Illness Date/Time: 03/01/25 16:49 Chief Complaint: Chest pain Narrative: ER-HPI narrative: 49-year-old female with reported history of hypertension, GERD, PUD, kidney stones presents to the emergency department for epigastric abdominal pain that started at 6:00 p.m.. Patient states she was sitting at dinner when she began having pain in her epigastrium and lower chest that radiates to her back. She reports a history of indigestion and states this feels similar, however usually does not last this long. She states 30 minutes after her pain started she ate potato soup which made the pain worse. She thought it was acid reflux she took omeprazole but did not have improvement. Patient reports associated nausea and vomiting as well as diarrhea and subjective fever and chills. Patient has a history of acid reflux and was also told that she had an ulcer on endoscopy several years ago. Denies urinary symptoms, melena or hematochezia, hematemesis or coffee-ground emesis. Denies numbness or tingling to extremities. Patient is endorsing a cough To further evaluate patient epigastric pain, had CT scan of the abdomen, showed 1.8 cm round stones left renal pelvis with mild to moderate left hydronephrosis. also patient urine is suspicious for UTI with 3+ leukocyte esterase and urine white count is over 100, patient in being treated ceftriaxone, patient is seen by an urologist and is scheduled for cystoscopy and placement of a stent later today, , patient he pain in much better compared to when she arrive, will monitor and follow the patient. Review of Systems Review of Systems: All systems reviewed & are unremarkable except as noted in HPI and below [facility] Social History Social History Smoking status: Never smoker Alcohol intake: current Drinks per week: 2 Substance use: never Substance use type: does not use Do You Feel Safe in your Home?: Yes Lack of Transportation: No Lack of Food: Never True Current Housing: I Have Housing Concerned About Future Housing: No Difficulty Paying Gas/Electric Bills: No Difficulty Paying for Meds: No Currently Unemployed: No Education: Bachelor's Degree Difficulty w/ Childcare or Family Care: No Spiritual care concerns: No Meds Home Medications and Allergies Home Medications ?Medication ?Instructions ?Recorded ?Confirmed ?Type escitalopram oxalate 10 mg tablet 10 mg PO DAILY@0800 03/01/25 03/01/25 History hydrochlorothiazide 25 mg tablet 12.5 mg PO COUNTS INCLUDE 234 BEDS AT [facility] 03/01/25 03/01/25 History lisinopril 20 mg tablet 20 mg PO QA 03/01/25 03/01/25 History norethindrone 0.5 mg-ethinyl 1 tablet PO QA 03/01/25 03/01/25 History estradiol 35 mcg tablet (Nortrel) trazodone 50 mg tablet 50 mg PO 03/01/25 03/01/25 History Allergies Allergy/AdvReac Type Severity Reaction Status Date / Time acetaminophen (From Percocet) AdvReac Intermediate Hallucinati Verified 03/01/25 08:55 ng oxycodone AdvReac Intermediate Hallucinati Verified 03/01/25 08:55 ng Vital Signs Vital Signs - 24 hr 02/28/25 22:35 02/28/25 23:16 02/28/25 23:50 Temperature 36.6 C Pulse Rate 78 85 Respiratory Rate 26 H 22 H Blood Pressure 157/90 H 172/88 H Pulse Oximetry 100 100 Oxygen Delivery Room Air Room Air Oxygen Flow Rate 03/01/25 00:00 03/01/25 00:31 03/01/25 02:45 Temperature Pulse Rate 71 82 80 Respiratory Rate 17 19 Blood Pressure 156/83 H Pulse Oximetry 100 100 Oxygen Delivery Oxygen Flow Rate 03/01/25 04:18 03/01/25 05:01 03/01/25 07:13 Temperature Pulse Rate 67 78 70 Respiratory Rate 19 12 18 Blood Pressure 156/101 H 174/95 H 188/94 H Pulse Oximetry 100 96 98 Oxygen Delivery Oxygen Flow Rate 03/01/25 12:38 03/01/25 14:15 03/01/25 14:30 Temperature 36.8 C 36.3 C L Pulse Rate 68 68 62 Respiratory Rate 20 12 12 Blood Pressure 164/85 H 104/65 115/72 Pulse Oximetry 97 100 100 Oxygen Delivery Room Air Simple Face Mask Simple Face Mask Oxygen Flow Rate 10 10 03/01/25 14:45 03/01/25 15:00 03/01/25 15:15 Temperature Pulse Rate 60 60 74 Respiratory Rate 12 15 16 Blood Pressure 142/76 H 142/76 H 155/81 H Pulse Oximetry 100 100 100 Oxygen Delivery Simple Face Mask Room Air Room Air Oxygen Flow Rate 10 03/01/25 15:48 Temperature 36.3 C L Pulse Rate 67 Respiratory Rate 16 Blood Pressure 154/77 H Pulse Oximetry 100 Oxygen Delivery Oxygen Flow Rate Exam Narrative: Patient is comfortable, NAD HEENT: eyes are clear and none icteric LUNGS:CTA HEART: RR S1S2 ABD: BS+, Soft and nontender Lower extremities: no edema SKIN: nonjaundiced Neuro: grossly intact. H&P: Results Labs Labs: Short CBC 02/28/25 Range/Units 22:43 WBC 12.0 H (4.5-10.0) K/mm3 Hgb 13.4 (12.0-15.0) g/dL Hct 40.3 (37.0-47.0) % Plt Count 346 (150-375) k/mm3 BMP 02/28/25 22:43 Sodium 141 Potassium 3.1 L Chloride 104 Carbon Dioxide 24 BUN 13 Creatinine 1.00 Glucose 109 Calcium 10.3 H Cardiac Enzymes 02/28/25 Range/Units 22:43 Troponin I < 0.012 (0.000-0.034) ng/mL Liver Function 02/28/25 Range/Units 22:43 Total Bilirubin 0.5 (0.2-1.3) mg/dL AST 28 (14-36) U/L ALT 19 (6-35) U/L Alkaline Phosphatase 46 (38-126) U/L Albumin 4.5 (3.5-5.1) g/dL Urine 03/01/25 Range/Units 00:47 Urine Color Yellow (Yellow) Urine Appearance Cloudy H (Clear) Urine pH 7.5 (5.0-9.0) Ur Specific [place] 1.040 H (1.001-1.035) Urine Protein 2+ H (Negative) mg/dL Urine Glucose (UA) Negative (Negative) mg/dL Assessment and Plan Assessment and plan (1) Calculus, renal: Code(s): N20.0 - Calculus of kidney Status: Acute (2) UTI (urinary tract infection): Qualifiers: Hematuria presence: with hematuria Urinary tract infection type: acute cystitis Qualified Code(s): N30.01 - Acute cystitis with hematuria Code(s): N39.0 - Urinary tract infection, site not specified Status: Acute Plan To further evaluate patient epigastric pain, had CT scan of the abdomen, showed 1.8 cm round stones left renal pelvis with mild to moderate left hydronephrosis. also patient urine is suspicious for UTI with 3+ leukocyte esterase and urine white count is over 100, patient in being treated ceftriaxone, patient is seen by an urologist and is scheduled for cystoscopy and placement of a stent later today, , patient he pain in much better compared to when she arrive, will monitor and follow the patient.
[2025-03-02] MEDS: HYDROmorphone HCL INJ (*CRX) 2 MG/ML VIAL 0.5 MG IV PUSH (02:05)
[2025-03-02] MEDS: cefTRIAXone 1 GM in SODIUM CHLORIDE 0.9% IV 50 ML 100 ML IVPB (05:45)
[2025-03-02 05:48] VITALS: BP 114/59; PULSE 83; RESP 24; TEMP 36.8; O2SAT 98
[2025-03-02 06:42] LABS: Hematocrit 35.2 % (37.0-47.0); Hemoglobin 11.5 g/dL (12.0-15.0); Immature Granulocyte Percent A 0.4 % (0-0.5); Lymphocytes Absolute Auto 3.34 K/mm3 (0.9-3.2); Mean Corpuscular HGB Conc 32.7 g/dl (32-36); Mean Corpuscular Hemoglobin 29.7 pg (26-34); Mean Corpuscular Volume 91.0 fl (80-100); Nucleated Red Blood Cells Absolute Auto 0.000 K/mm3 (0.0-0.012); Nucleated Red Blood Cells Perc 0.0 % (0.0-0.2); Platelet Count Result 308 k/mm3 (150-375); Red Blood Count 3.87 M/mm3 (4.2-5.4); White Blood Count 13.5 K/mm3 (4.5-10.0)
[2025-03-02 06:55] LABS: Anion Gap 8 mmol/L (4-12); Blood Urea Nitrogen 9 mg/dL (7-17); Calcium 8.6 mg/dL (8.4-10.2); Carbon Dioxide 26 mmol/L (22-30); Chloride 106 mmol/L (98-107); Estimated CRCL calculation 72 ml/min; Estimated Glomerular Filt Rate > 60; Glucose 105 mg/dL (65-110); Potassium 3.6 mmol/L (3.4-5.0); Sodium 140 mmol/L (137-145)
--- NOTE | 2025-03-02 09:13 | WPDANESPN ---
Anes - Prog Note Post-Op Date/Time: 03/02/25 09:13 Cardiovascular status: normal Respiratory status: normal Airway patency: baseline Mental status: baseline Post-Op hydration status: normal Vital Signs: Last Vital Signs Temp 36.8 C 03/02/25 05:48 Pulse 83 03/02/25 05:48 Resp 24 H 03/02/25 05:48 BP 114/59 L 03/02/25 05:48 Pulse Ox 98 03/02/25 05:48 O2 Del Method Room Air 03/01/25 21:11 O2 Flow Rate 10 03/01/25 14:45 Pain Score (VAS): 09/26 I/O: Intake & Output 03/01/25 03/02/25 03/02/25 23:59 07:59 15:59 Intake Total 240 100 Balance 240 100 Laboratory Tests 03/02/25 06:27 03/02/25 06:27 03/02/25 06:27 WBC 13.5 H RBC 3.87 L Hgb 11.5 L Hct 35.2 L MCV 91.0 MCH 29.7 MCHC 32.7 RDW 13.5 Plt Count 308 MPV 10.3 Immature Gran % (Auto) 0.4 Neut % (Auto) 68.0 Lymph % (Auto) 24.7 [place] % (Auto) 6.7 Eos % (Auto) 0.1 Baso % (Auto) 0.1 L Lymph # (Auto) 3.34 H [place] # (Auto) 0.9 H Eos # (Auto) 0.0 Baso # (Auto) 0.0 Abs Immat Gran (auto) 0.06 H Absolute Neuts (auto) 9.2 H Absolute Nucleated RBC 0.000 Nucleated RBC % 0.0 Sodium 140 Potassium 3.6 Chloride 106 Carbon Dioxide 26 Anion Gap 8 BUN 9 Creatinine 0.77 Estim Creat Clear Calc 72 Estimated GFR > 60 Glucose 105 Calcium 8.6 Post-procedural complaints: none Patient Feedback: Patient satisfied with anesthetic care.
[2025-03-02] MEDS: ESCITALOPRAM OXALATE 10 MG TABLET PO (09:19)
--- NOTE | 2025-03-02 09:30 | PC.NURSE ---
Pt questioned re: adverse reaction to acetaminophen. Pt states she has an allergy to codeine/tylenol 3, but does fine with tylenol alone--no adverse reaction.
[2025-03-02] MEDS: ACETAMINOPHEN 500 MG TABLET 1000 MG PO (10:24)
--- NOTE | 2025-03-02 11:17 | P.PNUR_ITS ---
Progress Note: A&P Assessment and Plan (1) UTI (urinary tract infection): Qualifiers: Hematuria presence: with hematuria Urinary tract infection type: acute cystitis Qualified Code(s): N30.01 - Acute cystitis with hematuria Code(s): N39.0 - Urinary tract infection, site not specified Status: Acute (2) Calculus, renal: Code(s): N20.0 - Calculus of kidney Status: Acute Plan POD 1 Cystoscopy, left retrograde pyelogram, left ureteral stent insertion for Large left renal stone, approximately 25mm and Left hydronephrosis -wbc up to 13.5 today -cr remains wnl -urine and blood cultures are pending. Culture driven antibiotic therapy per primary service. -Plan outpatient stone management after resolution of infection. Likely PCNL given large stone size on [place] side. Patient plans to defer until after next . Subjective Subjective Date/Time Seen: 03/02/25 11:17 Interval history: POD 1 Cystoscopy, left retrograde pyelogram, left ureteral stent insertion for Large left renal stone, approximately 25mm and Left hydronephrosis no acute events overnight. Patient feels much better and is tolerating stent well. Review of Systems Review of Systems: All systems reviewed & are unremarkable except as noted in HPI and below Exam Const: General: comfortable and no acute distress Eyes: General: appearance normal, both eyes and all related structures Resp: Effort & Inspection: normal respiratory effort Skin: General skin exam: normal color Neuro: Speech: normal speech Psych: Mental Status: mental status grossly normal Affect: normal affect Objective Data Vital Signs Vital Signs: Vital Signs - 24 hr 03/01/25 12:38 03/01/25 14:15 03/01/25 14:30 Temperature 98.2 F 97.3 F L Pulse Rate 68 68 62 Respiratory Rate 20 12 12 Blood Pressure 164/85 H 104/65 115/72 Pulse Oximetry 97 100 100 Oxygen Delivery Room Air Simple Face Mask Simple Face Mask Oxygen Flow Rate 10 03/01/25 14:45 03/01/25 15:00 03/01/25 15:15 Temperature Pulse Rate 60 60 74 Respiratory Rate 12 15 16 Blood Pressure 142/76 H 142/76 H 155/81 H Pulse Oximetry 100 100 100 Oxygen Delivery Simple Face Mask Room Air Room Air Oxygen Flow Rate 10 03/01/25 15:48 03/01/25 20:00 03/01/25 21:11 Temperature 97.3 F L Pulse Rate 67 Respiratory Rate 16 Blood Pressure 154/77 H Pulse Oximetry 100 98 99 Oxygen Delivery Room Air Room Air Oxygen Flow Rate 03/01/25 21:59 03/02/25 05:48 03/02/25 08:00 Temperature 98.3 F 98.3 F Pulse Rate 76 83 Respiratory Rate 24 H 24 H Blood Pressure 144/78 H 114/59 L Pulse Oximetry 98 98 Oxygen Delivery Room Air Oxygen Flow Rate Intake/Output Intake/Output: Intake & Output 02/27/25 02/28/25 03/01/25 03/02/25 23:59 23:59 23:59 23:59 Intake Total 2340 150 Balance 2340 150 Meds/Results Medications: Active Medications Generic Name Dose Route Start Last Admin Trade Name Freq PRN Reason Stop Dose Admin Acetaminophen 1,000 mg 03/02/25 09:26 03/02/25 10:24 Acetaminophen 500 Mg Tablet PO 1,000 mg Q8H PRN Administration Mild Pain (1-3) or Fever Escitalopram Oxalate 10 mg 03/02/25 08:00 03/02/25 09:19 Escitalopram Oxalate 10 Mg Tablet PO 10 mg DAILY@0800 ESTELLE Administration Fentanyl Citrate 25 mcg 03/01/25 13:18 Fentanyl Citrate Inj (*Crx) 100 Mcg/2 Ml Vial IV PUSH Q2M PRN Pain Hydrochlorothiazide 12.5 mg 03/02/25 09:00 03/02/25 09:19 Hydrochlorothiazide 12.5 Mg Capsule PO 12.5 mg QAM ESTELLE Administration Hydromorphone HCl 0.5 mg 03/01/25 02:38 03/02/25 02:05 Hydromorphone Hcl Inj (*Crx) 2 Mg/Ml Vial IV PUSH 0.5 mg Q4H PRN Administration Pain Rated 7-10 Ceftriaxone Sodium 1 gm/ 50 mls @ 100 mls/hr 03/02/25 05:00 03/02/25 06:15 Sodium Chloride IVPB Infused Q24H ESTELLE Infusion Sodium Chloride 1,000 mls @ 125 mls/hr 03/01/25 02:40 03/02/25 05:14 Normal Saline Iv IV CONT Not Given .Q8H ESTELLE Lisinopril 20 mg 03/02/25 09:00 03/02/25 09:19 Lisinopril 20 Mg Tablet PO 20 mg QAM ESTELLE Administration Miscellaneous Information 0 each 03/01/25 00:01 03/02/25 05:14 Nortrel 0.5/35 Is Non-Formulary. Use Pt Own Supply? XX 03/31/25 00:00 Not Given CLARIFY ESTELLE Non-Formulary Medication 1 tablet 03/02/25 09:00 Norethindrone-Ethin Estradiol [Nortrel 0.5/35 (28)] PO 04/01/25 08:59 QAM ESTELLE Ondansetron HCl 4 mg 03/01/25 02:38 03/01/25 10:00 Ondansetron Inj 4 Mg/2 Ml Vial IV PUSH 4 mg Q4H PRN Administration Nausea Ondansetron HCl 4 mg 03/01/25 13:18 Ondansetron Inj 4 Mg/2 Ml Vial IV PUSH ONCE PRN Nausea Trazodone HCl 50 mg 03/01/25 21:00 03/01/25 19:34 Trazodone Hcl 50 Mg Tablet PO 50 mg HS ESTELLE Administration Radiology Results: ITS Impressions Chest X-Ray 02/28/25 23:03 IMPRESSION: 1. No acute cardiopulmonary disease. 2. Ovoid density projecting over the upper lumbar spine which could represent and indeterminate large sclerotic bone lesion, a gallstone or large renal stone. Chest/Abdomen/Pelvis CTA 03/01/25 05:48 Impression: 1.8 cm round stones left renal pelvis with mild to moderate left hydronephrosis. Mild hyperenhancement of the urothelium in the left renal collecting system could reflect ascending urinary tract infection. Correlate with urinalysis. No evidence of ron pyelonephritis. Retrograde Pyelogram 03/01/25 15:27 IMPRESSION: 1. Left internal ureteral stent placement. Please refer to real-time procedural findings for details. Labs Labs: Laboratory Results - last 24 hr 03/02/25 06:27 WBC 13.5 H RBC 3.87 L Hgb 11.5 L Hct 35.2 L MCV 91.0 MCH 29.7 MCHC 32.7 RDW 13.5 Plt Count 308 MPV 10.3 Immature Gran % (Auto) 0.4 Neut % (Auto) 68.0 Lymph % (Auto) 24.7 [place] % (Auto) 6.7 Eos % (Auto) 0.1 Baso % (Auto) 0.1 L Lymph # (Auto) 3.34 H [place] # (Auto) 0.9 H Eos # (Auto) 0.0 Baso # (Auto) 0.0 Abs Immat Gran (auto) 0.06 H Absolute Neuts (auto) 9.2 H Absolute Nucleated RBC 0.000 Nucleated RBC % 0.0 Sodium 140 Potassium 3.6 Chloride 106 Carbon Dioxide 26 Anion Gap 8 BUN 9 Creatinine 0.77 Estim Creat Clear Calc 72 Estimated GFR > 60 Glucose 105 Calcium 8.6
--- NOTE | 2025-03-02 11:44 | P.DS_ITS ---
DS: Admitting Diagnosis Discharge Date 03/02/25 Admitting Diagnosis Chest pain DS: Discharge Diagnosis Discharge Diagnosis (1) Calculus, renal: Code(s): N20.0 - Calculus of kidney Status: Acute (2) UTI (urinary tract infection): Qualifiers: Hematuria presence: with hematuria Urinary tract infection type: acute cystitis Qualified Code(s): N30.01 - Acute cystitis with hematuria Code(s): N39.0 - Urinary tract infection, site not specified Status: Acute Plan To further evaluate patient epigastric pain, had CT scan of the abdomen, showed 1.8 cm round stones left renal pelvis with mild to moderate left hydronephrosis. also patient urine is suspicious for UTI with 3+ leukocyte esterase and urine white count is over 100, patient in being treated ceftriaxone, patient is seen by an urologist and is scheduled for cystoscopy and placement of a stent later today, , patient he pain in much better compared to when she arrive, will monitor and follow the patient. DS: Summary Hospital Course Hospital Course: To further evaluate patient epigastric pain, had CT scan of the abdomen, showed 1.8 cm round stones left renal pelvis with mild to moderate left hydronephrosis. also patient urine is suspicious for UTI with 3+ leukocyte esterase and urine white count is over 100, patient in being treated ceftriaxone, patient is seen by an urologist and is scheduled for cystoscopy and placement of a stent later today, POD 1 Cystoscopy, left retrograde pyelogram, left ureteral stent insertion for Large left renal stone, approximately 25mm and Left hydronephrosis today patient pain in much better compared to when she arrive, patient is clinically stable will discharge patient today. Time Spent with Patient Time attestation: Total time spent providing and/or coordinating discharge services: Exam Narrative: Patient is comfortable, NAD HEENT: eyes are clear and none icteric LUNGS:CTA HEART: RR S1S2 ABD: BS+, Soft and nontender Lower extremities: no edema SKIN: nonjaundiced Neuro: grossly intact. DS: Data Data Completed and Pending Labs on day of discharge: Labs from last 24 hours 03/02/25 06:27 WBC 13.5 H RBC 3.87 L Hgb 11.5 L Hct 35.2 L MCV 91.0 MCH 29.7 MCHC 32.7 RDW 13.5 Plt Count 308 MPV 10.3 Immature Gran % (Auto) 0.4 Neut % (Auto) 68.0 Lymph % (Auto) 24.7 Lander % (Auto) 6.7 Eos % (Auto) 0.1 Baso % (Auto) 0.1 L Lymph # (Auto) 3.34 H Lander # (Auto) 0.9 H Eos # (Auto) 0.0 Baso # (Auto) 0.0 Abs Immat Gran (auto) 0.06 H Absolute Neuts (auto) 9.2 H Absolute Nucleated RBC 0.000 Nucleated RBC % 0.0 Sodium 140 Potassium 3.6 Chloride 106 Carbon Dioxide 26 Anion Gap 8 BUN 9 Creatinine 0.77 Estim Creat Clear Calc 72 Estimated GFR > 60 Glucose 105 Calcium 8.6 Discharge Plan Discharge Attending physician on discharge: Beata Morgan Consulting providers: Jori, Hilda; Devan Graham; Augustine Wilkins i; Madeline Villalobos; Sara Davis; [place]; Polo Barlow; Isael Saavedra; Tung Chandler; Yunior Washington Discharging Clinician: Festus Alfonso Patient Disposition: Home Activity: other - see discharge instructions Diet: regular Discharge Instructions: patient to follow discharge instruction from her urologist and follow up as scheduled, patient to follow up with her primary care provider as soon as possible, patient instructed if any symptoms redevelop to go to nearest ER. Patient may return to work tomorrow. Patient Instructions: Antibiotic Form Patient Language: Wolof Stand Alone Forms: General Discharge Information, Work/School Release IP Follow-up/Referrals: Miquel Wilkins MD [Physician] - ([id number] [facility] , [address] [place] [address]) PHYSICIAN NOT ON STAFF,NONSTAFF [Primary Care Provider] - Discharge Medications: New cefdinir 300 mg capsule 300 mg PO Q12H Qty: 10 0RF Continued escitalopram oxalate 10 mg tablet 10 mg PO DAILY@0800 hydrochlorothiazide 25 mg tablet 12.5 mg PO QAM lisinopril 20 mg tablet 20 mg PO QAM Nortrel 0.5/35 (28) 0.5-35 mg-mcg tablet 1 tablet PO QAM trazodone 50 mg tablet 50 mg PO HS Date of admission: 03/01/25 02:39 Primary Care Provider: PHYSICIAN NOT ON STAFF,NONSTAFF Admitting Provider: Beata Morgan Attending physician on admission: Festus Alfonso Condition: Stable
== END 2025-03-02 14:00 | disposition home or self-care (01) ==
LOC: ANHED 03-01 02:38 → ANH3MEDSUR 03-01 08:41
PROVIDERS: Student in an Organized Health Care Education/Training Program; Urology; Admitting Provider General Practice; Emergency Provider Physician Assistant; Visit Provider Family Medicine
PROC: (CPT 52352; principal; 2025-03-01 13:30)
DX: N13.6 Pyonephrosis (principal); I10 Essential (primary) hypertension; K21.9 Gastro-esophageal reflux disease without esophagitis; Z87.11 Personal history of peptic ulcer disease; Z87.442 Personal history of urinary calculi; Z79.899 Other long term (current) drug therapy
CPT/HCPCS: 52332; 36415; 71046; 71275; 74174; 74420; 80048; 80053; 81001; 81025; 83605; 83690; 83735; 84484; 85025; 85610; 85730; 87040; 87086; 93005; 96361; 96365; 96374; 96375; 96376; 99285; A9270; C1758; C1769; C2617; G0378; J0696; J1100; J1171; J2003; J2250; J2405; J2704; J3010; J7030; J7120; Q9966; Q9967